=== PATIENT | female | born 1950 | race Caucasian/White ===

== ENCOUNTER → 2017-06-16 | Outpatient (CLI) | payer MEDICARE, OTHER ==
[~2017-06-16] MED LIST: TYLENOL W/CODEI1 TA2 PO; ZOLOFT25 MG PO
== END | disposition home or self-care (01) ==
LOC: MAMMO 01:55
DX: Z12.31 Encounter for screening mammogram for malignant neoplasm of breast (principal)

== ENCOUNTER → 2017-07-22 | Day surgery (SDC) | payer MEDICARE, OTHER ==
[~2017-07-22] VITALS: Ht 144.7 cm; Wt 0.2 kg
--- NOTE | ~2017-07-22 | O ---
[place], [place] OPERATIVE NOTE NAME: LISA GOLD UNIT #: [id number] ROOM: DOCTOR: JAMES LEVY MD BIRTHDATE: [birth year] DOS: 07/22/2017 HISTORY OF PRESENT ILLNESS: A 67-year-old patient who presented with chief complaint of colonic screening, undergoing investigation. ALLERGIES: ____. FAMILY HISTORY: Noncontributory. PAST SURGICAL HISTORY: Clubfoot and right hip prosthesis. PAST MEDICAL HISTORY: Depression, anxiety, glaucoma. Dental extractions. SOCIAL HISTORY: Nonsmoker, rare alcohol consumer. PROCEDURE: Today's procedure part of investigation is colonoscopy plus piecemeal polypectomy. PREMEDICATION: Versed and Diprivan. SCOPE: Olympus folding colonoscope 10L video. REPORT: After putting the patient in left lateral position and application of lubricant to the scope, the scope was introduced; thereafter, under direct visualization, advanced through the length of colon without difficulty. Diverticulosis was appreciated. This is moderate degree. Base of the cecum explored, appendiceal orifice identified, ileocecal valve was defined. Scope was gradually withdrawn after photographic series of the base of cecum and terminal ileum. A sessile polypoid lesion in rectal pouch identified with piecemeal polypectomy removed. The patient extubated, tolerated procedure well. IMPRESSION: Diverticulosis and sessile polyp in rectal pouch, status post piecemeal polypectomy. PLAN AND DISCUSSION: High-fiber diet. ACTIVITY: Ad sofía. FOLLOWUP: Routinely with you in office, p.r.n. visit with us in [facility]. I thank you very much again for your kind referral. [place], [place] OPERATIVE NOTE NAME: LISA GOLD UNIT #: [id number] ROOM: DOCTOR: JAMES LEVY MD BIRTHDATE: [birth year] JAMES LEVY MD CM:OPRECORD:OPERATIVE NOTE [id number] LOBO LEVY MD 07/22/17 1317 interface
[2017-07-22 09:25] VITALS: BP 120/63
[2017-07-22 10:40] VITALS: BP 96/48
[2017-07-22 10:55] VITALS: BP 106/54
[2017-07-22 11:10] VITALS: BP 112/55
== END | disposition home or self-care (01) ==
LOC: SDC 07-19 10:15
DX: Z12.11 Encounter for screening for malignant neoplasm of colon (principal); F32.9 Major depressive disorder, single episode, unspecified; F41.9 Anxiety disorder, unspecified; Z98.890 Other specified postprocedural states; K57.30 Diverticulosis of large intestine without perforation or abscess without bleeding; K62.1 Rectal polyp; M19.90 Unspecified osteoarthritis, unspecified site; Z88.8 Allergy status to other drugs, medicaments and biological substances

== ENCOUNTER → 2018-04-05 | Outpatient (CLI) | payer MEDICARE ==
[~2018-04-05] MED LIST changes: +ALENDRONATE SOD70 M1 PO; +PRAVACHOL20 MG PO; +Percocet 325 MG1 TAB PO; +TIMOLOL 0.5%-DO10 ML OP; +XALATAN 0.005%2.5 ML INTRAOC; +ZOFRAN 4 MG ED2 TAB PO
== END | disposition home or self-care (01) ==
LOC: ORTHO 00:59
DX: S52.572D Other intraarticular fracture of lower end of left radius, subsequent encounter for closed fracture with routine healing (principal); M19.032 Primary osteoarthritis, left wrist; X58.XXXD Exposure to other specified factors, subsequent encounter

== ENCOUNTER → 2018-04-24 | Outpatient (CLI) | payer MEDICARE | END | disposition home or self-care (01) | LOC: ORTHO 08:05 | DX: S52.572D Other intraarticular fracture of lower end of left radius, subsequent encounter for closed fracture with routine healing (principal); M19.032 Primary osteoarthritis, left wrist ==

== ENCOUNTER → 2018-05-23 | Outpatient (CLI) | payer MEDICARE | END | disposition home or self-care (01) | LOC: ORTHO 03:01 | DX: S52.572D Other intraarticular fracture of lower end of left radius, subsequent encounter for closed fracture with routine healing (principal); X58.XXXD Exposure to other specified factors, subsequent encounter; Z98.890 Other specified postprocedural states ==

== ENCOUNTER → 2018-06-28 | Outpatient (CLI) | payer MEDICARE | END | disposition home or self-care (01) | LOC: ORTHO 01:09 | DX: S52.572D Other intraarticular fracture of lower end of left radius, subsequent encounter for closed fracture with routine healing (principal); X58.XXXD Exposure to other specified factors, subsequent encounter ==

== ENCOUNTER → 2020-03-27 | Outpatient (CLI) | payer MEDICARE | END | disposition home or self-care (01) | LOC: MAMMO 01:03 | PROVIDERS: ATTEND Family Medicine | DX: Z12.31 Encounter for screening mammogram for malignant neoplasm of breast (principal) ==